=== PATIENT | female | born 1980 | race Caucasian/White ===

== ENCOUNTER 2017-03-26 08:23 | Emergency (ER) | payer SELFPAY ==
[2017-03-26 08:40] VITALS: BP 147/101
[2017-03-26] MEDS ORDERED: TYLENOL PO ONE (09:24)
[2017-03-26] MEDS ORDERED: TYLENOL ONE (09:26)
[2017-03-26] MEDS ORDERED: CLEOCIN PO ONE (11:46)
[2017-03-26] MEDS ORDERED: TYLENOL #3 PO ONE (11:46)
--- NOTE | 2017-03-26 11:56 | Emergency Department Report ---
Entered by HEMA SCHUSTER, acting as scribe for MEGHAN HAN PA. ED ENT HPI - General Chief complaint: Dental/Oral Stated complaint: MOUTH PAIN Time Seen by Provider: 03/26/17 10:23 Source: patient Mode of arrival: Ambulatory Limitations: No Limitations - Related Data Previous Rx's Medication Instructions Recorded Last Taken Type Acetaminophen/Codeine [Tylenol 1 tab PO Q6H PRN #10 tab 03/26/17 Unknown Rx /Codeine # 3 tab] Clindamycin [Clindamycin CAP] 300 mg PO BID #20 cap 03/26/17 Unknown Rx Allergies Allergy/AdvReac Type Severity Reaction Status Date / Time Penicillins Allergy Hives Verified 03/26/17 08:35 ED Dental HPI - General Chief complaint: Dental/Oral Stated complaint: MOUTH PAIN Time Seen by Provider: 03/26/17 10:23 Source: patient Mode of arrival: Ambulatory Limitations: No Limitations - History of Present Illness Initial comments: 37 y/o female with no significant PMHx presents to the ED c/o right lower dental pain that began 2 days ago. Patient states she was eating and a piece of tooth subsequently fell out. Rates pain a 10/10 in severity, which she describes as aching in quality. Aggravated with talking, eating, and movement, and alleviated with nothing. Associated symptom includes right ear pain, but she denies fever, chills, nausea, vomiting, sore throat, cough, and headache. Took Ibuprofen and Tylenol, and did salt water goggles with no relief. Notes she is here from [place] for a brief period and denies having a dentist back at home. Allergic to penicillin. complaint: tooth pain Onset/Timin -: days(s) 1 - tooth #29 is partially missing with dental caries and associated pain Severity: severe (10/10) Quality: aching Consistency: constant Improves with: none Worsens with: eating, chewing, movement Context- Dental: history of dental caries, poor dental care Dental Associated Symptons: Yes: Earache. No: Headache, Sore Throat, Gum Swelling, Fever - Related Data Previous Rx's Medication Instructions Recorded Last Taken Type Acetaminophen/Codeine [Tylenol 1 tab PO Q6H PRN #10 tab 03/26/17 Unknown Rx /Codeine # 3 tab] Clindamycin [Clindamycin CAP] 300 mg PO BID #20 cap 03/26/17 Unknown Rx Allergies Allergy/AdvReac Type Severity Reaction Status Date / Time Penicillins Allergy Hives Verified 03/26/17 08:35 ED Review of Systems Comment: All other systems reviewed and negative Constitutional: denies: chills, fever Eyes: denies: eye pain, eye discharge, vision change ENT: ear pain (RT ear), dental pain (RT lower dental pain). denies: throat pain , hearing loss, epistaxis, congestion Respiratory: denies: cough, orthopnea, shortness of breath, SOB with exertion, SOB at rest, stridor, wheezing Cardiovascular: denies: chest pain, palpitations, dyspnea on exertion, orthopnea , edema, syncope, paroxysmal nocturnal dyspnea Endocrine: no symptoms reported Gastrointestinal: denies: abdominal pain, nausea, vomiting, diarrhea Genitourinary: denies: urgency, dysuria, discharge Musculoskeletal: denies: back pain, joint swelling, arthralgia Skin: denies: rash, lesions Neurological: denies: headache, weakness, numbness, paresthesias, confusion, abnormal gait, vertigo Psychiatric: denies: anxiety, depression ED Past Medical Hx - Past Medical History Previous Medical History?: No - Surgical History Past Surgical History?: Yes Additional Surgical History: x 4 - Family History Family history: no significant - Social History Smoking Status: Former Smoker Substance Use Type: Non Opiate Pain - Medications Home Medications: Home Medications Medication Instructions Recorded Confirmed Last Taken Type Acetaminophen/Codeine [Tylenol 1 tab PO Q6H PRN #10 tab 03/26/17 Unknown Rx /Codeine # 3 tab] Clindamycin [Clindamycin CAP] 300 mg PO BID #20 cap 03/26/17 Unknown Rx ED Physical Exam - General Limitations: No Limitations General appearance: alert, in no apparent distress - Head Head exam: Present: atraumatic, normocephalic - Eye Eye exam: Present: normal appearance, PERRL, EOMI Pupils: Present: normal accommodation - ENT ENT exam: Present: normal orophraynx, mucous membranes moist, TM's normal bilaterally, normal external ear exam. Absent: normal exam - Expanded ENT Exam Expanded Ear exam: Present: normal external inspection Mouth exam: Present: normal external inspection, tongue normal. Absent: drooling, trismus, muffled voice, tongue elevation, laceration Teeth exam: Present: dental caries (tooth #29), fractured tooth # (29), dental tenderness # (29), other (tooth #20-21 and #4-5 are missing). Absent: normal inspection, gingival enlargement Throat exam: Positive: normal inspection. Negative: tonsillar erythema, tonsillomegaly, tonsillar exudate, R peritonsillar mass, L peritonsillar mass - Neck Neck exam: Present: normal inspection, full ROM. Absent: tenderness, meningismus, lymphadenopathy - Respiratory Respiratory exam: Present: normal lung sounds bilaterally. Absent: respiratory distress, wheezes, rales, rhonchi, stridor - Cardiovascular Cardiovascular Exam: Present: regular rate, normal rhythm, normal heart sounds. Absent: systolic murmur, diastolic murmur, rubs, gallop - GI/Abdominal GI/Abdominal exam: Present: soft, normal bowel sounds. Absent: distended - Extremities Exam Extremities exam: Present: normal inspection, full ROM - Back Exam Back exam: Present: normal inspection, full ROM - Neurological Exam Neurological exam: Present: alert, oriented X3, normal gait - Psychiatric Psychiatric exam: Present: normal affect, normal mood - Skin Skin exam: Present: warm, dry, intact, normal color. Absent: rash ED Course Vital Signs 03/26/17 08:35 Temperature 98.6 F Pulse Rate 89 Respiratory 20 Rate Blood Pressure 147/101 O2 Sat by Pulse 100 Oximetry ED Medical Decision Making - Medical Decision Making 37 y/o female presents with right lower dental pain (tooth #29) ED course: Patient was given a dose of Clindamycin and Tylenol #3. Vital signs stable patient is in no acute or respiratory distress. Discussed with patient to take 7-10 day course of antibiotics and pain medication as prescribed. Discussed findings with patient about diagnoses. Discussed treatment in ED with patient Discussed with patient to follow up with an chief technician as referred, and to return to the ED if symptoms return or worsen. Patient states understanding and will follow instructions. Pt verbally states understanding and will comply to follow up. ED Disposition Clinical Impression: Dental caries, Tooth ache Disposition: DC-01 TO HOME OR SELFCARE Is pt being admited?: No Does the pt Need Aspirin: No Condition: Stable Instructions: Toothache (ED), Dental Caries (ED) Additional Instructions: Follow-up with a dentist as referred. take all your medications as prescribed Prescriptions: Acetaminophen/Codeine [Tylenol /Codeine # 3 tab] 1 tab PO Q6H PRN #10 tab PRN Reason: Pain Clindamycin [Clindamycin CAP] 300 mg PO BID #20 cap Referrals: PRIMARY CARE, [Primary Care Provider] - 3-5 Days [facility] [Outside] - 3-5 Days [facility] [Outside] - 3-5 Days Forms: Accompanied Note, Work/School Release Form(ED) Time of Disposition: 11:54 This documentation as recorded by the LANDEN cobian JASMINE,accurately reflects the service I personally performed and the decisions made by GUILLE pineda OYINLOLA A PA.
== END 2017-03-26 12:04 | disposition home or self-care (01) ==
LOC: ED 08:23
DX: K08.89 Other specified disorders of teeth and supporting structures (principal); Z88.0 Allergy status to penicillin; Z87.891 Personal history of nicotine dependence
CPT/HCPCS: 99282